=== PATIENT | male | born 1965 | race African-American/Black ===

== ENCOUNTER 2017-06-13 11:45 | Emergency (ER) | payer SELFPAY ==
[2017-06-13 11:50] VITALS: BP 113/84; BMI 18.4
--- NOTE | 2017-06-13 12:26 | DR.ABDMALE ---
HPI - Time seen Time seen: 12:00 - PCP Primary Care Physician: NFD - Complaint Chief Complaint Doctors Comments: Patient presents with complaint of flu like symptoms for a rew days. He also reports that his abdomen has been large for several weeks. He has a history of alcohol use and cigarette use. He reports that he has not seen a physician in sixteen years. He denies vomiting or shortness of breath. He denies vomiting. Chief Complaint:: PT. C/O ABDOMINAL PAIN AND SWELLING X 2 WEEKS. PT. STATES HE ALSO HAS HAD C/C/C. PT. HAS ALSO EXPERIENCED WEIGHT LOSS. - Mode of arrival Mode of Arrival: Ambulatory - Timing Onset of Chief Complaint: 05/30/17 PMH - PMH Past Medical History: No Past Surgical History: Yes Surgical History: Other Past Surgical History Comment: NECK - Family History History of Family Medical Conditions: No - Social History Does patient currently use any type of tobacco product: Yes Have you used tobacco products in the last 12 months: Yes Type of Tobacco Use: Cigarettes Does any household member use tobacco: No Alcohol Use: Occasionally Do you use any recreational Drugs:: No Lives With: Family Lives Where: Home - infectious screening In the last 2 months have you had wt loss of >10#?: NO Have you had fever, night sweats or hemotysis?: No Have you traveled outside the country in the last 6 months?: No Isolation: Standard ROS - Review of Systems Eyes: No Symptoms Reported ENTM: No Symptoms Reported Respiratoy: No Symptoms Reported Cardiovascular: No Symptoms Reported Gastrointestinal/Abdominal: Other (enlarged stomach) Genitourinary: No Symptoms Reported Neurological: No Symptoms Reported Musculoskeletal: No Symptoms Reported Integumentary: No Symptoms Reported Hematologic/Lymphatic: No Symptoms Reported Endocrine: No Symptoms Reported Psychiatric: No Symptoms Reported All Other Systems: Reviewed and Negative PE - Vital Signs Vital Signs: Temp Pulse Resp BP Pulse Ox 06/13/17 11:45 100.3 F H 129 H 22 113/84 97 - General General Appearance: Alert, In No Apparent Distress - Head Head Exam: Normal Inspection, Atraumatic - Eyes Eye exam: Normal Appearance, PERRL, EOMI - ENT ENT Exam: Normal Exam - Neck Neck Exam: Normal Inspection, Full ROM - Chest Chest Inspection: Normal Inspection - Respiratory Respiratory Exam: Normal Lung Sounds Bilat Respiratory Exam: Bilateral Clear to Auscultation - Cardiovascular Cardiovascular Exam: Regular Rate, Normal Rhythm - Abdominal Exam Abdominal Exam: Normal Inspection Abdominal Tenderness: Other (tense non tender) - Rectal Rectal Exam: Deferred - Back Back Exam: Normal Inspection - Extremeties Extremities Exam: Normal Inspection, Full ROM - Exam: Male: Deferred - Neurologic Neurological Exam: Alert, Oriented X3, CN II-XII Intact - Psychiatric Psychiatric Exam: Normal Affect, Normal Mood Course - Consultation Consultation Comments: Dr Mota ([facility] [phone]) was contacted, agreed to see patient on 06/15/17 at 1300 hours. ROR - Labs Reviewed Result Diagrams: 06/13/17 12:35 06/13/17 12:35 Laboratory: WBC 7.2 X10^3/uL (3.6-10.0) 06/13/17 12:35 RBC 4.57 X10^6/uL (4.7-6.0) L 06/13/17 12:35 Hgb 12.6 g/dL (13.5-18.0) L 06/13/17 12:35 Hct 38.3 % (42.0-54.0) L 06/13/17 12:35 MCV 83.9 fL (80.0-100.0) 06/13/17 12:35 MCH 27.7 pg (27.0-34.0) 06/13/17 12:35 MCHC 33.0 g/dL (33.0-35.0) 06/13/17 12:35 RDW 17.5 % (11.6-16.5) H 06/13/17 12:35 Plt Count 325 X10^3/uL (150.0-450.0) 06/13/17 12:35 MPV 8.8 fL (7.4-11.0) 06/13/17 12:35 Neut % 82.1 % (42.0-75.0) H 06/13/17 12:35 Lymph % 7.1 % (21.0-51.0) L 06/13/17 12:35 [place] % 10.5 % (0.0-13.0) 06/13/17 12:35 Eos % 0.1 % (0.9-2.9) L 06/13/17 12:35 Baso % 0.2 % (0.2-1.0) 06/13/17 12:35 Neut # 5.9 x10^3/uL (2.2-4.8) H 06/13/17 12:35 Lymph # 0.5 X10^3/uL (1.3-2.9) L 06/13/17 12:35 [place] # 0.8 x10^3/uL (0.3-0.8) 06/13/17 12:35 Eos # 0.0 x10^3/uL (0.0-0.2) 06/13/17 12:35 Baso # 0.0 X10^3/uL (0.0-0.1) 06/13/17 12:35 Absolute Nucleated RBC 0.2 /100WBC 06/13/17 12:35 Sodium 135 mmol/L (136-145) L 06/13/17 12:35 Corrected Sodium TNP 06/13/17 12:35 Potassium 3.6 mmol/L (3.5-5.1) 06/13/17 12:35 Chloride 98 mmol/L (98-107) 06/13/17 12:35 Carbon Dioxide 29.5 mmol/L (21-32) 06/13/17 12:35 BUN 6 mg/dL (7-18) L 06/13/17 12:35 Creatinine 0.76 mg/dL (0.70-1.30) 06/13/17 12:35 Est GFR (MDRD) Af Amer > 60 (>60) 06/13/17 12:35 Est GFR (MDRD) Non-Af > 60 (>60) 06/13/17 12:35 Glucose 100 mg/dL (65-99) H 06/13/17 12:35 Calcium 8.5 mg/dL (8.5-10.1) 06/13/17 12:35 Corrected Calcium 9.9 mg/dL (8.5-10.1) 06/13/17 12:35 Total Bilirubin 0.40 mg/dL (0.2-1.0) 06/13/17 12:35 AST 97 Units/L (15-37) H 06/13/17 12:35 ALT 25 Units/L (12-78) 06/13/17 12:35 Alkaline Phosphatase 789 Units/L (46-116) H 06/13/17 12:35 C-Reactive Protein 68.30 mg/L (0-3.0) H 06/13/17 12:35 Total Protein 7.6 g/dL (6.4-8.2) 06/13/17 12:35 Albumin 2.2 g/dL (3.4-5.0) L 06/13/17 12:35 Globulin 5.4 g/dL (2.5-4.5) H 06/13/17 12:35 Albumin/Globulin Ratio 0.4 Ratio (1.1-2.1) L 06/13/17 12:35 Amylase 29 Units/L (25-115) 06/13/17 12:35 Lipase 87 Units/L (73-393) 06/13/17 12:35 Influenza Type A (PCR) Negative (NEGATIVE) 06/13/17 12:25 Influenza Type B (PCR) Positive (NEGATIVE) A 06/13/17 12:25 - XRAY XRAY Interpreted by: Radiologist ( CT Abdomen: Examination of the lung bases demonstrated a 7.3mm right lower lobe pulmonary nodule withch appears noncalcified. Additionally there are multiple (too man to count)1-3 mm pulmonary nodules involving both lung bases. These could be inflammatory and granulomatous or metastatic in orgin. There is a large amount of ascites present. The liver is normal in size but diffusely involved with multiple hypo ehnancing nodules suggestive of diffuse hepatic metastatic disease. There are some calcifications present within some othe nodules. Cholelithiasis is present. The spleen is small and contains a single cyst. The adrenal glands appear normal the pancreas appears normal. The kidneys are unobstructed and without masses. No stones are identified. No ureteral calculi are identified. No englarge intraperitoneral or retroperitoneal lymphadenopathy is identified. There are no findings suggestive of small or large bowel obstruction. There is some transmural thickening of some small bowel loop0s possible related to the patient's liver disease. Examination of the pelvis demonstrated no evidence for pelvic masses, pelvic fluid, or pelvic lymphadenopathy. No definite inguinal adenopathy is identified. No lytic or blastic skeletal lesions are identified. Impresssion: Massive asdcities, multiple (too many to count)hypo enhancing lesions within the liver suggestive orf metastatic disease, Cholelithiasis, 7.3mm right lower lobe noncalcified pulmonary nodule, Multiple (too mant to count)123 mm lower lobe pulmonary noduyels which could be infectious,inflammatory or matastatic in orgin.) - Diagnosis Discharge Problem: Massive Ascites, Metastatic Liver Disease, Pulmonary nodules/lesions, multiple Cholelithiasis Qualifiers: Cholelithiasis location: gallbladder Cholecystitis presence: with cholecystitis Cholecystitis acuity: chronic Biliary obstruction: without biliary obstruction Qualified Code(s): K80.10 - Calculus of gallbladder with chronic cholecystitis without obstruction - Discharge Plan Condition: Stable - Follow ups/Referrals Follow ups/Referrals: NFD,None [Primary Care Provider] - 3 days - Instructions
[2017-06-13 12:51] LABS: BASOPHILS % (AUTO) 0.2 % (0.2-1.0); EOSINOPHILS % (AUTO) 0.1 % (0.9-2.9); HEMATOCRIT 38.3 % (42.0-54.0); HEMOGLOBIN 12.6 g/dL (13.5-18.0); LYMPHOCYTES # (AUTO) 0.5 X10^3/uL (1.3-2.9); LYMPHOCYTES % (AUTO) 7.1 % (21.0-51.0); MEAN CORPUSCULAR HEMOGLOBIN 27.7 pg (27.0-34.0); MEAN CORPUSCULAR VOLUME 83.9 fL (80.0-100.0); MEAN PLATELET VOLUME 8.8 fL (7.4-11.0); MONOCYTES # (AUTO) 0.8 x10^3/uL (0.3-0.8); MONOCYTES % (AUTO) 10.5 % (0.0-13.0); NEUTROPHILS # (AUTO) 5.9 x10^3/uL (2.2-4.8); NEUTROPHILS % (AUTO) 82.1 % (42.0-75.0); PLATELET COUNT 325 X10^3/uL (150.0-450.0); RED BLOOD COUNT 4.57 X10^6/uL (4.7-6.0); RED CELL DISTRIBUTION WIDTH 17.5 % (11.6-16.5); WHITE BLOOD COUNT 7.2 X10^3/uL (3.6-10.0)
[2017-06-13 13:01] LABS: ALANINE AMINOTRANSFERASE 25 Units/L (12-78); ALBUMIN 2.2 g/dL (3.4-5.0); ALKALINE PHOSPHATASE 789 Units/L (46-116); AMYLASE 29 Units/L (25-115); ASPARTATE AMINO TRANSFERASE 97 Units/L (15-37); BLOOD UREA NITROGEN 6 mg/dL (7-18); CALCIUM 8.5 mg/dL (8.5-10.1); CARBON DIOXIDE 29.5 mmol/L (21-32); CHLORIDE 98 mmol/L (98-107); COR CA(FOR HYPOALB) 9.9 mg/dL (8.5-10.1); CREATININE 0.76 mg/dL (0.70-1.30); LIPASE 87 Units/L (73-393); SODIUM 135 mmol/L (136-145); TOTAL PROTEIN 7.6 g/dL (6.4-8.2); eGFR BLACK RACES > 60 (>60); eGFR NON BLACK RACES > 60 (>60)
--- NOTE | 2017-06-13 13:02 | RAD ---
HISTORY: Abdominal pain and swelling for 2 weeks. Fever, cough, congestion. Study: Acute abdominal series Comparison: No priors Findings: The trachea is midline. The cardiac silhouette is unremarkable. There is aortic uncoiling. Increased interstitial markings are present involving both lungs. No consolidation, CHF or pleural fluid is se en. The bony thorax is unremarkable. Flat plate and upright evaluation of the abdomen demonstrates a gaseous distention of multiple small bowel loops. Air and stool is present throughout the colon. Findings have the appearance of small bow el ileus versus partial small bowel obstruction. No complete obstruction is seen. There is no evidenc e of free intraperitoneal air. There is a hazy appearance of the abdomen with poor definition of the psoas margins, likely indicating some amount of ascites. No pathological soft tissue mass is observed . Three small calcifications appear to be mobile in the right abdomen. These may represent calcified mesenteric lymph nodes or calcified vascular structures. These do not appear to be related to either the gallbladder or right kidney. The bony structures are grossly intact. IMPRESSION: 1. No acute cardiopulmonary disease. 2. Small bowel ileus versus partial small bowel obstruction. No free intraperitoneal air seen. 3. Hazy appearance of the abdomen suggesting ascites. Recommend CT evaluation of the abdomen. Reported By:
[2017-06-13] MEDS ORDERED: NS 100 ML IV 100 ML IV ONE (13:48)
--- NOTE | 2017-06-13 14:31 | CT ---
HISTORY: Abdominal pain, bloating, weight loss Study: CT abdomen pelvis with contrast Comparison: None Technique: Axial post-contrast images with coronal and sagittal reformats. Dose reduction procedures were used with mA/kv adjusted for body size. The examination is limited due to the lack of oral contr ast. Findings: Examination of the lung bases demonstrated a 7.3 mm right lower lobe pulmonary nodule which appears n oncalcified. Additionally there are multiple (too many to count ) 1-3 mm pulmonary nodules involving both lung bases. These could be inflammatory and granulomatous or metastatic in origin. There is a la rge amount of ascites present. The liver is normal in size but diffusely involved with multiple hypo enhancing nodules suggestive of diffuse hepatic metastatic disease. There are some calcifications pre sent within some of the nodules. Cholelithiasis is present. The spleen is small and contains a single cyst. The adrenal glands appear normal the pancreas appears normal. The kidneys are unobstructed and without masses. No stones are identified. No ureteral calculi are identified. No enlarged intraperit [place] or retroperitoneal lymphadenopathy is identified. There are no findings suggestive of small or large bowel obstruction. There is some transmural thickening of some small bowel loops possibly relat ed to the patient's liver disease. Examination of the pelvis demonstrated no evidence for pelvic mass es, pelvic fluid, or pelvic lymphadenopathy. No definite inguinal adenopathy is identified. No lytic or blastic skeletal lesions are identified. IMPRESSION: Massive ascites Multiple (too many to count) hypo enhancing lesions within the liver suggestive of metastatic disease Cholelithiasis 7.3 mm right lower lobe noncalcified pulmonary nodule Multiple (too many to count) 123 mm lower lobe pulmonary nodules which could be infectious, inflammat ory, or metastatic in origin. Reported By:
== END 2017-06-13 15:36 | disposition home or self-care (01) ==
LOC: ER 11:56
DX: R18.8 Other ascites (principal); C22.8 Malignant neoplasm of liver, primary, unspecified as to type; R91.1 Solitary pulmonary nodule; K80.10 Calculus of gallbladder with chronic cholecystitis without obstruction
CPT/HCPCS: 36415; 74022; 74177; 80053; 82150; 83690; 85025; 86140; 87502; 96365; 99283; A4222

== ENCOUNTER → 2017-08-29 | Outpatient (CLI) | payer MEDICAID ==
[2017-08-29 12:16] LABS: BASOPHILS % (AUTO) 0.7 % (0.2-1.0); EOSINOPHILS % (AUTO) 0.1 % (0.9-2.9); HEMATOCRIT 34.6 % (42.0-54.0); HEMOGLOBIN 11.8 g/dL (13.5-18.0); MEAN CORPUSCULAR HEMOGLOBIN 30.9 pg (27.0-34.0); MEAN CORPUSCULAR VOLUME 90.8 fL (80.0-100.0); MEAN PLATELET VOLUME 8.3 fL (7.4-11.0); MONOCYTES # (AUTO) 0.6 x10^3/uL (0.3-0.8); MONOCYTES % (AUTO) 10.7 % (0.0-13.0); NEUTROPHILS # (AUTO) 4.4 x10^3/uL (2.2-4.8); NEUTROPHILS % (AUTO) 72.5 % (42.0-75.0); PLATELET COUNT 426 X10^3/uL (150.0-450.0); RED BLOOD COUNT 3.81 X10^6/uL (4.7-6.0); RED CELL DISTRIBUTION WIDTH 19.9 % (11.6-16.5)
[2017-08-29 14:03] LABS: ALANINE AMINOTRANSFERASE 31 Units/L (12-78); ALBUMIN 1.4 g/dL (3.4-5.0); ALKALINE PHOSPHATASE 1429 Units/L (46-116); ASPARTATE AMINO TRANSFERASE 75 Units/L (15-37); BLOOD UREA NITROGEN 6 mg/dL (7-18); CALCIUM 7.8 mg/dL (8.5-10.1); CARBON DIOXIDE 28.6 mmol/L (21-32); CHLORIDE 101 mmol/L (98-107); COR CA(FOR HYPOALB) 9.9 mg/dL (8.5-10.1); CREATININE 0.67 mg/dL (0.70-1.30); SODIUM 138 mmol/L (136-145); eGFR BLACK RACES > 60 (>60); eGFR NON BLACK RACES > 60 (>60)
== END ==
LOC: LAB 11:19
PROVIDERS: ATTEND Internal Medicine Medical Oncology
DX: C19 Malignant neoplasm of rectosigmoid junction (principal); C22.8 Malignant neoplasm of liver, primary, unspecified as to type
CPT/HCPCS: 36415; 80053; 85025; 85610; 85730

== ENCOUNTER 2017-10-16 08:10 | Inpatient (IN) ==
[2017-10-16 09:12] LABS: BASOPHILS % (AUTO) 0.1 % (0.2-1.0); HEMATOCRIT 34.3 % (42.0-54.0); HEMOGLOBIN 11.4 g/dL (13.5-18.0); LYMPHOCYTES # (AUTO) 1.2 X10^3/uL (1.3-2.9); LYMPHOCYTES % (AUTO) 10.6 % (21.0-51.0); MEAN CORPUSCULAR HEMOGLOBIN 29.4 pg (27.0-34.0); MEAN CORPUSCULAR HGB CONC 33.3 g/dL (33.0-35.0); MEAN CORPUSCULAR VOLUME 88.3 fL (80.0-100.0); MEAN PLATELET VOLUME 8.6 fL (7.4-11.0); MONOCYTES # (AUTO) 0.6 x10^3/uL (0.3-0.8); MONOCYTES % (AUTO) 5.3 % (0.0-13.0); NEUTROPHILS # (AUTO) 9.4 x10^3/uL (2.2-4.8); PLATELET COUNT 421 X10^3/uL (150.0-450.0); RED BLOOD COUNT 3.89 X10^6/uL (4.7-6.0); RED CELL DISTRIBUTION WIDTH 17.4 % (11.6-16.5); WHITE BLOOD COUNT 11.2 X10^3/uL (3.6-10.0)
[2017-10-16 09:15] LABS: LACTIC ACID 1.3 mmol/L (0.4-2.0)
[2017-10-16 09:18] LABS: BLOOD UREA NITROGEN 39 mg/dL (7-18); CARBON DIOXIDE 33.4 mmol/L (21-32); CHLORIDE 98 mmol/L (98-107); CREATININE 1.03 mg/dL (0.70-1.30); SODIUM 138 mmol/L (136-145); eGFR NON BLACK RACES > 60 (>60)
[2017-10-16] MEDS ORDERED: D50W ABBOJECT SYR ONE (09:22)
[2017-10-16] MEDS ORDERED: D50W ABBOJECT SYR IV ONE (09:26)
[2017-10-16 09:32] LABS: ABG BASE EXCESS 10.2 mmol/L (-2.0-2.0); ABG HCO3 34.3 mmol/L (22-26)
[2017-10-16] MEDS ORDERED: ZOFRAN INJ 4 MG VIAL ONE (09:54)
[2017-10-16] MEDS ORDERED: ZOFRAN INJ 4 MG VIAL IVP ONE (09:57)
[2017-10-16] MEDS ORDERED: DILAUDID INJ ONE (09:58)
[2017-10-16] MEDS ORDERED: DILAUDID INJ IVP ONE (10:11)
--- NOTE | 2017-10-16 10:12 | DR.GENAD ---
HPI - PCP Primary Care Physician: ANT - Complaint/Symptoms Chief Complaint Doctors Comments: Hx. as noted below. He is weak and has been fallen. Caregiver/sister states she can't take care of him now with his falls. 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 with malignant ascites. He was hypothermic upon arrival in the ED today. Chief Complaint:: EMS STATES PT'S FAMILY C/O PT HAS BEEN HAVING FREQUENT FALLING. PT DENIES HAVING ANY PAIN. - Nurses notes reviewed Nurses Notes Review: Yes - Source History Provided: Patient, EMS - Mode of Arrival Mode of Arrival: EMS - Timing Onset of Chief Complaint: 10/16/17 PMH - PMH Past Medical History: Yes Past Medical History Comment: COLON CA with metastasis. malignant ascites Past Surgical History: Yes Surgical History: Other Past Surgical History Comment: PAC - Family History History of Family Medical Conditions: Yes Family Medical History: Hypertension - Social History Does any household member use tobacco: No Alcohol Use: None Do you use any recreational Drugs:: No Lives With: Family Lives Where: Home - infectious screening In the last 2 months have you had wt loss of >10#?: NO Have you had fever, night sweats or hemotysis?: No Have you traveled outside the country in the last 6 months?: No Isolation: Standard ROS - Review of Systems Constitutional: Weakness, Loss of Appetite, Other (Falls) Eyes: No Symptoms Reported ENTM: No Symptoms Reported Respiratoy: No Symptoms Reported Cardiovascular: No Symptoms Reported Genitourinary: No Symptoms Reported Neurological: No Symptoms Reported Musculoskeletal: No Symptoms Reported Integumentary: No Symptoms Reported Hematologic/Lymphatic: No Symptoms Reported Endocrine: No Symptoms Reported Psychiatric: No Symptoms Reported All Other Systems: Reviewed and Negative PE - General Limitations: Physical Limitation General Appearance: Alert, In No Apparent Distress, Cachectic - Head Head Exam: Normal Inspection - Eyes Eye exam: Normal Appearance - ENT ENT Exam: Normal Exam - Neck Neck Exam: Normal Inspection - Chest Chest Inspection: Normal Inspection - Respiratory Respiratory Exam: Normal Lung Sounds Bilat - Cardiovascular Cardiovascular Exam: Regular Rate, Normal Rhythm, Normal Heart Sounds, +S1, +S2 - Abdominal Exam Abdominal Exam: Soft, Distention, Ascites - Extremities Extremities Exam: Normal Inspection - Neurologic Neurological Exam: Alert, Oriented X3 - Psychiatric Psychiatric Exam: Normal Affect - Skin Skin Exam: Warm, Dry, Intact, Normal Color - Vital Signs Vitals: Temperature 92.9 F Pulse Rate [Right Brachial] 73 Pulse Rate 71 Respiratory Rate 18 Blood Pressure [Right Arm] 110/79 Blood Pressure 124/97 O2 Sat by Pulse Oximetry 100 ROR - Labs Reviewed Result Diagrams: 10/16/17 08:25 10/16/17 08:41 - EKG Rate: 68 [place]: Normal Rhythm: NSR Block: None Hypertrophy: None - Labs Reviewed Laboratory: WBC 11.2 X10^3/uL (3.6-10.0) H 10/16/17 08:25 RBC 3.89 X10^6/uL (4.7-6.0) L 10/16/17 08:25 Hgb 11.4 g/dL (13.5-18.0) L 10/16/17 08:25 Hct 34.3 % (42.0-54.0) L 10/16/17 08:25 MCV 88.3 fL (80.0-100.0) 10/16/17 08:25 MCH 29.4 pg (27.0-34.0) 10/16/17 08:25 MCHC 33.3 g/dL (33.0-35.0) 10/16/17 08:25 RDW 17.4 % (11.6-16.5) H 10/16/17 08:25 Plt Count 421 X10^3/uL (150.0-450.0) 10/16/17 08:25 MPV 8.6 fL (7.4-11.0) 10/16/17 08:25 Neut % (Auto) 84.0 % (42.0-75.0) H 10/16/17 08:25 Lymph % (Auto) 10.6 % (21.0-51.0) L 10/16/17 08:25 [place] % (Auto) 5.3 % (0.0-13.0) 10/16/17 08:25 Eos % (Auto) 0.0 % (0.9-2.9) L 10/16/17 08:25 Baso % (Auto) 0.1 % (0.2-1.0) L 10/16/17 08:25 Neut # (Auto) 9.4 x10^3/uL (2.2-4.8) H 10/16/17 08:25 Lymph # (Auto) 1.2 X10^3/uL (1.3-2.9) L 10/16/17 08:25 [place] # (Auto) 0.6 x10^3/uL (0.3-0.8) 10/16/17 08:25 Eos # (Auto) 0.0 x10^3/uL (0.0-0.2) 10/16/17 08:25 Baso # (Auto) 0.0 X10^3/uL (0.0-0.1) 10/16/17 08:25 Absolute Nucleated RBC 0.0 /100WBC 10/16/17 08:25 Sample Site Lba 10/16/17 09:00 ABG pH 7.510 (7.35-7.45) H 10/16/17 09:00 ABG pCO2 43.0 mmHg (35.0-45.0) 10/16/17 09:00 ABG pO2 86.0 mmHg (80.0-100.0) 10/16/17 09:00 ABG HCO3 34.3 mmol/L (22-26) H* 10/16/17 09:00 ABG O2 Saturation 97.0 % (90-100) 10/16/17 09:00 ABG Base Excess 10.2 mmol/L (-2.0-2.0) H 10/16/17 09:00 [place] Test Na 10/16/17 09:00 A-a Gradient 10.0 mmHg 10/16/17 09:00 FiO2 21.000 10/16/17 09:00 Blood Gas Comments Debby wel aw/cs 10/16/17 09:00 Sodium 138 mmol/L (136-145) 10/16/17 08:41 Corrected Sodium TNP 10/16/17 08:41 Potassium 3.6 mmol/L (3.5-5.1) 10/16/17 08:41 Chloride 98 mmol/L (98-107) 10/16/17 08:41 Carbon Dioxide 33.4 mmol/L (21-32) H 10/16/17 08:41 BUN 39 mg/dL (7-18) H 10/16/17 08:41 Creatinine 1.03 mg/dL (0.70-1.30) 10/16/17 08:41 Est GFR (MDRD) Af Amer > 60 (>60) 10/16/17 08:41 Est GFR (MDRD) Non-Af > 60 (>60) 10/16/17 08:41 Glucose 29 mg/dL (65-99) L* 10/16/17 08:41 POC Glucose (mg/dL) 126 mg/dL (65-99) H 10/16/17 10:10 Lactic Acid 1.3 mmol/L (0.4-2.0) 10/16/17 08:41 Calcium 9.0 mg/dL (8.5-10.1) 10/16/17 08:41 - Diagnosis Discharge Problem: Hypothermia, Hypoglycemia, Falls, Adenocarcinoma of colon metastatic to liver - Discharge Plan Disposition: ADMITTED INPATIENT Condition: Stable - Follow ups/Referrals Follow ups/Referrals: NFD,None [Primary Care Provider] - 3 days - Instructions
[2017-10-16] MEDS ORDERED: NORCO 10/325 TAB PO ONE (10:47)
[2017-10-16] MEDS ORDERED: NORCO 10/325 TAB ONE (10:49)
[2017-10-16] MEDS ORDERED: DURAGESIC 75 mcg/HR PATCH TD SCH (11:00)
[2017-10-16] MEDS: D5 1/2 NS 1000 ML 1,000 ML IV SCH ×2 (12:47→21:29)
[2017-10-16 13:44] LABS: ALBUMIN 1.5 g/dL (3.4-5.0); BILIRUBIN,DIRECT 0.45 mg/dL (0-0.2); TOTAL PROTEIN 7.4 g/dL (6.4-8.2)
[2017-10-16] MEDS: NORCO 7.5/325 MG TAB PO PRN ×2 (16:42→22:30)
[2017-10-16] MEDS ORDERED: ZOFRAN INJ 4 MG VIAL IVP PRN (22:51)
[2017-10-17] MEDS: D5 1/2 NS 1000 ML 1,000 ML IV SCH ×3 (00:42→12:13)
[2017-10-17] MEDS ORDERED: D50W ABBOJECT SYR IV ONE (05:48)
[2017-10-17 05:56] LABS: ALANINE AMINOTRANSFERASE 89 Units/L (12-78); ALBUMIN 1.3 g/dL (3.4-5.0); ALKALINE PHOSPHATASE 1535 Units/L (46-116); ASPARTATE AMINO TRANSFERASE 221 Units/L (15-37); BLOOD UREA NITROGEN 50 mg/dL (7-18); CALCIUM 7.7 mg/dL (8.5-10.1); CARBON DIOXIDE 29.5 mmol/L (21-32); CHLORIDE 96 mmol/L (98-107); COR CA(FOR HYPOALB) 9.9 mg/dL (8.5-10.1); CREATININE 1.69 mg/dL (0.70-1.30); SODIUM 137 mmol/L (136-145); TOTAL PROTEIN 6.7 g/dL (6.4-8.2); eGFR NON BLACK RACES 46 (>60)
[2017-10-17 06:37] LABS: HEMATOCRIT 32.6 % (42.0-54.0); HEMOGLOBIN 10.9 g/dL (13.5-18.0); MEAN CORPUSCULAR HEMOGLOBIN 28.7 pg (27.0-34.0); MEAN CORPUSCULAR HGB CONC 33.3 g/dL (33.0-35.0); MEAN CORPUSCULAR VOLUME 86.2 fL (80.0-100.0); MEAN PLATELET VOLUME 9.5 fL (7.4-11.0); PLATELET COUNT 305 X10^3/uL (150.0-450.0); RED BLOOD COUNT 3.78 X10^6/uL (4.7-6.0); RED CELL DISTRIBUTION WIDTH 17.3 % (11.6-16.5); WHITE BLOOD COUNT 13.1 X10^3/uL (3.6-10.0)
[2017-10-17 06:41] LABS: BASOPHILS % (AUTO) 0.1 % (0.2-1.0); LYMPHOCYTES # (AUTO) 0.5 X10^3/uL (1.3-2.9); LYMPHOCYTES % (AUTO) 4.6 % (21.0-51.0); MONOCYTES # (AUTO) 0.7 x10^3/uL (0.3-0.8); MONOCYTES % (AUTO) 6.2 % (0.0-13.0); NEUTROPHILS # (AUTO) 9.9 x10^3/uL (2.2-4.8); NEUTROPHILS % (AUTO) 89.1 % (42.0-75.0)
[2017-10-17 06:52] LABS: ANISOCYTOSIS 1+; HYPOCHROMASIA 1+; PLATELET MORPHOLOGY COMMENT NORMAL (NORMAL)
[2017-10-17 06:53] LABS: CRENATED RBC NOTED; TARGET CELLS 1+
[2017-10-17] MEDS ORDERED: PATIENT'S HOME MEDICATION (Spironolactone [Spironolactone] 1 TAB) PO SCH (09:00)
[2017-10-17] MEDS ORDERED: ALDACTONE TAB 25 MG PO SCH (09:00)
[2017-10-17 09:16] VITALS: BMI 16.7
[2017-10-17] MEDS ORDERED: NS 1000 ML 2,000 ML IV ONE ×2 (09:18→17:35)
[2017-10-17] MEDS ORDERED: PHARMACY CONSULT - DOSE _____ XX SCH ×2 (10:00→13:00)
[2017-10-17] MEDS ORDERED: CORTEF ONE ×2 (10:26→17:26)
[2017-10-17] MEDS: CORTEF PO SCH ×2 (11:00→17:37)
[2017-10-17] MEDS ORDERED: NS IRRIGATION 500 ML IR ONE (14:48)
--- NOTE | 2017-10-17 14:57 | RAD ---
HISTORY: NG tube placement. Prior history of colon/liver cancer. Study: Single-view chest, done portably and upright. Comparison: 06/13/2017. Findings: Left-sided LifePort is present with the tip in the mid SVC. Nasogastric tube is inserted with the tip at the level of the greater curvature of the gastric body. Side hole is distal to the EG junction. T rachea is midline. Heart size is normal. Increased interstitial markings are present bilaterally. Mod erate right-sided pleural effusion is present with atelectasis seen in the right lung base. There is no evidence of pneumothorax. No pleural fluid is seen on the left. Osseous structures are intact. IMPRESSION: Two description as above. Interval development of moderate right-sided pleural effusion with atelectasis present in the right b ase. Stable interstitial lung densities are present bilaterally. Reported By:
--- NOTE | 2017-10-17 15:38 | RAD ---
HISTORY: Abdominal pain, bloating, and weight loss. Study: Single AP view of the abdomen. Comparison: Acute abdominal series and CT abdomen/pelvis dated June 13, 2017. Findings: Evaluation of the abdomen demonstrates multiple dilated loops of small bowel to 5.4 cm. Suggestion of air overlying the rectum. No obvious free air, pneumatosis intestinalis, or portal venous gas. Hepat omegaly with suggestion of ascites. The osseous structures appear unchanged. No pathological soft ti ssue mass or calcification can be observed. The bony structures are grossly intact. IMPRESSION: Small bowel obstruction versus ileus. Recommend clinical correlation and consider follow- up imaging as indicated. Reported By:
[2017-10-17] MEDS: CLINIMIX 5 %/15 % 1,000 ML with MVI INJ (ADULT) 10 ML, TRACE ELEMENTS INJ 10 ML, DRUG F... IV SCH ×3 (16:02)
--- NOTE | 2017-10-17 16:54 | VAS ---
HISTORY: Bilateral lower extremity edema. Study: Bilateral lower extremity duplex venous ultrasound. Comparison: None. TECHNIQUE: Multiple caraballo scale and color flow Doppler images of the deep venous system were obtained of the right and left lower extremity. FINDINGS: The deep venous system of the right and left lower extremities were evaluated from the level of the c ommon femoral vein through the popliteal vein. Normal color flow and augmentation can be observed. In addition, normal compression is seen throughout the deep venous system. IMPRESSION: Negative for bilateral lower extremity DVT. Reported By:
[2017-10-17] MEDS ORDERED: NS 1000 ML 3,000 ML ONE (17:26)
[2017-10-17] MEDS: LIPOSYN III 20% 100ML 100 ML IV SCH (21:03)
[2017-10-17] MEDS: DILAUDID INJ IVP PRN (21:15)
[2017-10-18] MEDS: DILAUDID INJ IVP PRN (02:05)
[2017-10-18] MEDS: D5 1/2 NS 1000 ML 1,000 ML IV SCH ×3 (02:10→18:24)
[2017-10-18] MEDS ORDERED: CORTEF ONE (05:22)
[2017-10-18 05:48] LABS: BASOPHILS % (AUTO) 0.2 % (0.2-1.0); HEMATOCRIT 28.7 % (42.0-54.0); HEMOGLOBIN 9.2 g/dL (13.5-18.0); LYMPHOCYTES # (AUTO) 1.9 X10^3/uL (1.3-2.9); LYMPHOCYTES % (AUTO) 18.4 % (21.0-51.0); MEAN CORPUSCULAR HEMOGLOBIN 28.8 pg (27.0-34.0); MEAN CORPUSCULAR HGB CONC 32.1 g/dL (33.0-35.0); MEAN CORPUSCULAR VOLUME 89.8 fL (80.0-100.0); MEAN PLATELET VOLUME 9.9 fL (7.4-11.0); MONOCYTES # (AUTO) 0.5 x10^3/uL (0.3-0.8); MONOCYTES % (AUTO) 4.5 % (0.0-13.0); NEUTROPHILS # (AUTO) 7.9 x10^3/uL (2.2-4.8); NEUTROPHILS % (AUTO) 76.9 % (42.0-75.0); PLATELET COUNT 236 X10^3/uL (150.0-450.0); RED BLOOD COUNT 3.19 X10^6/uL (4.7-6.0); RED CELL DISTRIBUTION WIDTH 17.4 % (11.6-16.5); WHITE BLOOD COUNT 10.3 X10^3/uL (3.6-10.0)
[2017-10-18 05:51] LABS: ALBUMIN 1.1 g/dL (3.4-5.0); CALCIUM 6.3 mg/dL (8.5-10.1); CARBON DIOXIDE 26.9 mmol/L (21-32); COR CA(FOR HYPOALB) 8.6 mg/dL (8.5-10.1); CREATININE 1.96 mg/dL (0.70-1.30); TOTAL PROTEIN 5.9 g/dL (6.4-8.2)
[2017-10-18 06:52] LABS: BILIRUBIN,URINE 3+ (NEGATIVE); BLOOD/HEMOGLOBIN,URINE 4+ (NEGATIVE); GLUCOSE, URINE NEGATIVE (NEGATIVE); KETONES,URINE NEGATIVE (NEGATIVE); LEUKOCYTE ESTERASE ,URINE 1+ (NEGATIVE); NITRITES,URINE NEGATIVE (NEGATIVE); PROTEIN,URINE 2+ (NEGATIVE); UROBILINOGEN,URINE 1+ (NORMAL)
[2017-10-18 06:54] LABS: APPEARANCE,URINE HAZY (CLEAR); COLOR,URINE AMBER (YELLOW)
--- NOTE | 2017-10-18 06:58 | RAD ---
HISTORY: Abdominal pain Study: KUB Comparison: 10/17/2017 Findings: Once again noted are multiple dilated loops of small bowel in the mid abdomen with only a small amoun t of gas distally visualized in the rectum. These findings are suspicious for small bowel obstruction although a severe ileus could have this appearance. No abnormal masses are identified. No abnormal c alcifications are identified. There is a question of hepatomegaly which should be clinically correlat ed. The findings are unchanged from the prior examination. IMPRESSION: Persistent small bowel dilatation with only a small amount of gas distally within the rectum. Small b owel obstruction is suspected although a severe ileus could have this appearance Question hepatomegaly. Clinical correlation is recommended. Reported By:
[2017-10-18 06:59] LABS: ANISOCYTOSIS 1+; GIANT PLATELET FEW; HYPOCHROMASIA 1+; PLATELET MORPHOLOGY COMMENT NORMAL (NORMAL)
[2017-10-18] MEDS ORDERED: CORTEF PO SCH (07:00)
[2017-10-18 07:01] LABS: CRENATED RBC NOTED; TARGET CELLS 1+
[2017-10-18 07:03] LABS: AMORPHOUS SEDIMENT,UR 1+ /HPF (NEGATIVE); BACTERIA,URINE 1+ /HPF (NEGATIVE); MUCUS,URINE FEW /HPF (NEGATIVE); RBC,URINE TNTC /HPF (NONE SEEN); SQUAMOUS EPITHELIAL CELL,UR FEW /HPF (NEGATIVE)
--- NOTE | 2017-10-18 07:52 | DR.PROGNOT ---
Hospital Progress Notes - Progress Note for Day of: Progress Note Date: 10/18/17 - Chief Complaint Chief Complaint: refused NGT,. still very distended and tympanic. no significant urine output . pt is lethargic. - Past Medical Family Social History Past Med/Fam/Surg Hx: No changes since H&P Allergies: Allergies No Known Drug Allergies Allergy (Verified 10/14/17 11:08) - Review Of Systems ROS: No change since H&P - Vital Signs Vital Signs: Temperature 97.8 F Pulse Rate [Right Brachial] 98 Pulse Rate 71 Respiratory Rate 17 Blood Pressure [Right Arm] 114/80 Blood Pressure 124/97 O2 Sat by Pulse Oximetry 94 - Physical Exam Oriented: Not Oriented Ear: Normal Nose: Normal Respiratory: OTHER (shallow breathing .) GI:Auscultation: Decreased GI: Tenderness: Diffuse (tympanic abdomen and tender .) Speech Pattern: Clear, Appropriate - Laboratory and Diagnostics Result Diagrams: 10/18/17 04:24 10/18/17 04:24 Labs: 10/16/17 08:25 Blood Blood Culture - Preliminary Laboratory WBC 10.3 X10^3/uL (3.6-10.0) H 10/18/17 04:24 RBC 3.19 X10^6/uL (4.7-6.0) L 10/18/17 04:24 Hgb 9.2 g/dL (13.5-18.0) L 10/18/17 04:24 Hct 28.7 % (42.0-54.0) L 10/18/17 04:24 MCV 89.8 fL (80.0-100.0) 10/18/17 04:24 MCH 28.8 pg (27.0-34.0) 10/18/17 04:24 MCHC 32.1 g/dL (33.0-35.0) L 10/18/17 04:24 RDW 17.4 % (11.6-16.5) H 10/18/17 04:24 Plt Count 236 X10^3/uL (150.0-450.0) 10/18/17 04:24 Plt Count Comment Adequate (ADEQUATE) 10/18/17 04:24 MPV 9.9 fL (7.4-11.0) 10/18/17 04:24 Neut % (Auto) 76.9 % (42.0-75.0) H 10/18/17 04:24 Lymph % (Auto) 18.4 % (21.0-51.0) L 10/18/17 04:24 Real % (Auto) 4.5 % (0.0-13.0) 10/18/17 04:24 Eos % (Auto) 0.0 % (0.9-2.9) L 10/18/17 04:24 Baso % (Auto) 0.2 % (0.2-1.0) 10/18/17 04:24 Neut # (Auto) 7.9 x10^3/uL (2.2-4.8) H 10/18/17 04:24 Lymph # (Auto) 1.9 X10^3/uL (1.3-2.9) 10/18/17 04:24 Real # (Auto) 0.5 x10^3/uL (0.3-0.8) 10/18/17 04:24 Eos # (Auto) 0.0 x10^3/uL (0.0-0.2) 10/18/17 04:24 Baso # (Auto) 0.0 X10^3/uL (0.0-0.1) 10/18/17 04:24 Absolute Nucleated RBC 0.1 /100WBC 10/18/17 04:24 Plt Clumps, EDTA Rare 10/18/17 04:24 Giant Platelets Few 10/18/17 04:24 Plt Morphology Comment Normal (NORMAL) 10/18/17 04:24 RBC Morphology Abnormal (NORMAL) 10/18/17 04:24 Hypochromasia 1+ A 10/18/17 04:24 Anisocytosis 1+ A 10/18/17 04:24 Target Cells 1+ A 10/18/17 04:24 Crenated Cell Noted 10/18/17 04:24 Sample Site Lba 10/16/17 09:00 ABG pH 7.510 (7.35-7.45) H 10/16/17 09:00 ABG pCO2 43.0 mmHg (35.0-45.0) 10/16/17 09:00 ABG pO2 86.0 mmHg (80.0-100.0) 10/16/17 09:00 ABG HCO3 34.3 mmol/L (22-26) H* 10/16/17 09:00 ABG O2 Saturation 97.0 % (90-100) 10/16/17 09:00 ABG Base Excess 10.2 mmol/L (-2.0-2.0) H 10/16/17 09:00 Pio Test Na 10/16/17 09:00 A-a Gradient 10.0 mmHg 10/16/17 09:00 FiO2 21.000 10/16/17 09:00 Blood Gas Comments Debby wel aw/cs 10/16/17 09:00 Sodium 139 mmol/L (136-145) 10/18/17 04:24 Corrected Sodium 141 mmol/L (136-145) 10/18/17 04:24 Potassium 3.8 mmol/L (3.5-5.1) 10/18/17 04:24 Chloride 100 mmol/L (98-107) 10/18/17 04:24 Carbon Dioxide 26.9 mmol/L (21-32) 10/18/17 04:24 BUN 63 mg/dL (7-18) H 10/18/17 04:24 Creatinine 1.96 mg/dL (0.70-1.30) H 10/18/17 04:24 Est GFR (MDRD) Af Amer 47 (>60) L 10/18/17 04:24 Est GFR (MDRD) Non-Af 39 (>60) L 10/18/17 04:24 Glucose 170 mg/dL (65-99) H 10/18/17 04:24 POC Glucose (mg/dL) 177 mg/dL (65-99) H 10/18/17 05:24 Lactic Acid 1.3 mmol/L (0.4-2.0) 10/16/17 08:41 Calcium 6.3 mg/dL (8.5-10.1) L 10/18/17 04:24 Corrected Calcium 8.6 mg/dL (8.5-10.1) 10/18/17 04:24 Total Bilirubin 0.50 mg/dL (0.2-1.0) 10/18/17 04:24 Direct Bilirubin 0.45 mg/dL (0-0.2) H 10/16/17 08:41 Indirect Bilirubin 0.25 mg/dL (0.2-0.8) 10/16/17 08:41 AST 135 Units/L (15-37) H 10/18/17 04:24 ALT 72 Units/L (12-78) 10/18/17 04:24 Alkaline Phosphatase 1034 Units/L (46-116) H 10/18/17 04:24 Total Protein 5.9 g/dL (6.4-8.2) L 10/18/17 04:24 Albumin 1.1 g/dL (3.4-5.0) L 10/18/17 04:24 Globulin 4.8 g/dL (2.5-4.5) H 10/18/17 04:24 Albumin/Globulin Ratio 0.2 Ratio (1.1-2.1) L 10/18/17 04:24 Prealbumin 5.9 mg/dL (18-35.7) L 10/17/17 04:20 Specimen Type Catherized urine 10/18/17 06:27 Urine Color Linnea (YELLOW) 10/18/17 06: Urine Appearance Hazy (CLEAR) 10/18/17 06:27 Urine pH 5.0 (5.0 - 8.0) 10/18/17 06:27 Ur Specific [place] 1.020 (1.000-1.030) 10/18/17 06:27 Urine Protein 2+ (NEGATIVE) 10/18/17 06: Urine Glucose (UA) Negative (NEGATIVE) 10/18/17 06: Urine Ketones Negative (NEGATIVE) 10/18/17 06:27 Urine Occult Blood 4+ (NEGATIVE) 10/18/17 06: Urine Nitrite Negative (NEGATIVE) 10/18/17 06: Urine Bilirubin 3+ (NEGATIVE) 10/18/17 06:27 Urine Urobilinogen 1+ (NORMAL) 10/18/17 06:27 Ur Leukocyte Esterase 1+ (NEGATIVE) 10/18/17 06:27 Urine RBC Tntc /HPF (NONE SEEN) 10/18/17 06:27 Urine WBC 5-10 /HPF (NONE SEEN) 10/18/17 06:27 Ur Squamous Epith Cells Few /HPF (NEGATIVE) 10/18/17 06:27 Amorphous Sediment 1+ /HPF (NEGATIVE) 10/18/17 06: Urine Bacteria 1+ /HPF (NEGATIVE) 10/18/17 06: Urine Mucus Few /HPF (NEGATIVE) 10/18/17 06:27 Ur Culture Indicated? Yes/culture set up 10/18/17 06:27 - Assessment and Plan 1: SBO. terminal coln ca with carcinomatosis . to place on [facility] . - Problem Patient Problems: Patient Problems Hypothermia (Acute) T68.XXXA Hypoglycemia (Acute) E16.2 Falls (Acute) W19.XXXA Adenocarcinoma of colon metastatic to liver (Acute) C18.9, C78.7
[2017-10-18] MEDS ORDERED: DURAGESIC 75 mcg/HR PATCH TD SCH (09:00)
[2017-10-18] MEDS ORDERED: ATIVAN INJ 2 MG VIAL IVP PRN (09:02)
[2017-10-18] MEDS ORDERED: OXYFAST ORAL CONCENTRATE PO PRN (09:04)
[2017-10-18] MEDS ORDERED: NS 1000 ML 1,000 ML IV ONE (09:13)
[2017-10-18] MEDS: CLINIMIX 5 %/15 % 1,000 ML with MVI INJ (ADULT) 10 ML, TRACE ELEMENTS INJ 10 ML, DRUG F... IV SCH ×6 (10:16→22:04)
[2017-10-18] MEDS: CORTEF PO SCH ×2 (13:25→18:23)
[2017-10-18] MEDS: LIPOSYN III 20% 100ML 100 ML IV SCH (22:03)
[2017-10-19] MEDS: CLINIMIX 5 %/15 % 1,000 ML with MVI INJ (ADULT) 10 ML, TRACE ELEMENTS INJ 10 ML, DRUG F... IV SCH ×3 (05:19)
[2017-10-19 05:32] LABS: BASOPHILS % (AUTO) 0.2 % (0.2-1.0); HEMATOCRIT 31.7 % (42.0-54.0); HEMOGLOBIN 10.1 g/dL (13.5-18.0); LYMPHOCYTES # (AUTO) 0.4 X10^3/uL (1.3-2.9); LYMPHOCYTES % (AUTO) 3.9 % (21.0-51.0); MEAN CORPUSCULAR HEMOGLOBIN 28.4 pg (27.0-34.0); MEAN CORPUSCULAR VOLUME 88.8 fL (80.0-100.0); MEAN PLATELET VOLUME 10.2 fL (7.4-11.0); MONOCYTES # (AUTO) 0.7 x10^3/uL (0.3-0.8); MONOCYTES % (AUTO) 6.3 % (0.0-13.0); NEUTROPHILS # (AUTO) 9.4 x10^3/uL (2.2-4.8); NEUTROPHILS % (AUTO) 89.6 % (42.0-75.0); PLATELET COUNT 207 X10^3/uL (150.0-450.0); RED BLOOD COUNT 3.57 X10^6/uL (4.7-6.0); RED CELL DISTRIBUTION WIDTH 17.1 % (11.6-16.5); WHITE BLOOD COUNT 10.5 X10^3/uL (3.6-10.0)
[2017-10-19 05:51] LABS: ALANINE AMINOTRANSFERASE 66 Units/L (12-78); ALBUMIN 1.1 g/dL (3.4-5.0); ALKALINE PHOSPHATASE 1546 Units/L (46-116); ASPARTATE AMINO TRANSFERASE 95 Units/L (15-37); BLOOD UREA NITROGEN 57 mg/dL (7-18); CARBON DIOXIDE 25.8 mmol/L (21-32); CHLORIDE 101 mmol/L (98-107); COR CA(FOR HYPOALB) 9.3 mg/dL (8.5-10.1); COR NA(FOR HYPERGLY) 139 mmol/L (136-145); CREATININE 1.21 mg/dL (0.70-1.30); SODIUM 138 mmol/L (136-145); TOTAL PROTEIN 6.2 g/dL (6.4-8.2); eGFR NON BLACK RACES > 60 (>60)
[2017-10-19 06:28] LABS: GIANT PLATELET RARE; PLATELET MORPHOLOGY COMMENT NORMAL (NORMAL)
[2017-10-19 06:29] LABS: CRENATED RBC 1+; HYPOCHROMASIA 1+; POIKILOCYTOSIS 1+; TARGET CELLS 1+
[2017-10-19 10:45] VITALS: BP 72/50
[2017-10-19] MEDS ORDERED: XANAX ONE (11:34)
[2017-10-19] MEDS ORDERED: XANAX PO ONE (11:38)
== END 2017-10-19 08:55 | disposition expired | DRG 375 ==
LOC: ER 08:10 → MED/SURG 10:58
PROVIDERS: ADMIT Obstetrics & Gynecology Obstetrics; ATTEND Obstetrics & Gynecology Obstetrics
DX: R60.0 Localized edema; W18.39XA Other fall on same level, initial encounter; R29.6 Repeated falls; Z66 Do not resuscitate; C78.7 Secondary malignant neoplasm of liver and intrahepatic bile duct; C18.9 Malignant neoplasm of colon, unspecified; E86.0 Dehydration; T68.XXXA Hypothermia, initial encounter; E16.2 Hypoglycemia, unspecified; R94.31 Abnormal electrocardiogram [ECG] [EKG]; K56.699 Other intestinal obstruction unspecified as to partial versus complete obstruction
CPT/HCPCS: 36415; 36600; 71010; 71045; 74000; 74018; 80048; 80053; 80076; 81001; 82803; 82947; 83605; 83735; 84134; 85025; 87040; 87086; 93005; 93010; 93970; 96365; 96374; 96375; 99282; 99283; 99284; A4222; B5200; J1170; J2060; J2405; J3490; J7030; S5010